=== PATIENT | male | born 1940 | race Caucasian/White ===

== ENCOUNTER 2020-10-15 15:15 | Outpatient (CLI) | payer MEDICARE | END 2020-10-15 15:16 | disposition home or self-care (01) | LOC: CSHCP 15:15 | PROVIDERS: ATTEND Internal Medicine Cardiovascular Disease | DX: R06.02 Shortness of breath (principal); R94.2 Abnormal results of pulmonary function studies | CPT/HCPCS: 94060; 94726; 94729; 94760 ==

== ENCOUNTER 2023-05-24 09:06 | Outpatient (CLI) | payer MEDICARE | END 2023-05-24 09:07 | disposition home or self-care (01) | LOC: CSHCP 09:06 | PROVIDERS: ATTEND Internal Medicine Cardiovascular Disease | DX: R06.02 Shortness of breath (principal) | CPT/HCPCS: 94060; 94726; 94729; 94760 ==